=== PATIENT | female | born 1990 | race Caucasian/White ===

== ENCOUNTER 2021-12-28 16:02 | Emergency (ER) | payer OTHER, SELFPAY ==
--- NOTE | 2021-12-28 16:04 | ED.BACK ---
HPI - Back Pain/Injury General Chief Complaint: Back Pain/Injury Stated Complaint: back pain Time Seen by Provider: 12/28/21 16:04 Source: patient Mode of arrival: ambulatory Limitations: no limitations History of Present Illness HPI Narrative: Ms. Ronquillo is a 31-year-old female patient presenting to the clinic today with complaints of back pain of an exacerbation of chronic back pain. She reports she has had back pain off and on for 3 years but over the last 3 days has gradually gotten worse. 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 She reports she has a history of stenosis in her low back. She reports at times she will have numbness and tingling to her right hip and leg Related Data Allergies Allergy/AdvReac Type Severity Reaction Status Date / Time Penicillins Allergy Rash Verified 12/28/21 16:14 Review of Systems Review of Systems: Pertinent positives per HPI. Patient denies any fever, chills, rash, headache, visual changes, dizziness, cough, runny nose, sore throat, shortness of breath, chest pain, palpitations, nausea, vomiting, diarrhea, constipation, abdominal pain, or any urinary issues. PMFSH Comments At the time of my signature, I reviewed and agree with the nursing past medical, surgical, social, and family history. There is no relevant family history pertinent to the patient complaint. Exam Narrative: General: Well-developed, well nourished, in no apparent distress Head: Normocephalic, atraumatic. Cardio: Regular rate and rhythm, s1 and s2 normal, no murmur appreciated. Resp: Clear to auscultation bilaterally, no rhonchi, rales, wheezing or rubs. Musculoskeletal: No deformity, tender to palpation over the paraspinous muscles of the right low back, grossly normal range of motion, bilateral lower muscle strength strong and equal, peripheral pulse strong, patellar reflexes 2+, negative foot drop, no edema, no cyanosis, normal gait and station Course Course Emergency Course: Portions of this record may have been created with voice recognition software. Level of Care: Express Care Visit Vital Signs Vital signs: Vital signs reviewed MDM - Back Pain/Injury MDM Narrative Medical decision making narrative: At the time of visit patient is resting comfortably on the exam table. I suspect the patient has exacerbation of right-sided low back pain. I will send in a prescription for some Flexeril and give her a few days off work. 60 of Toradol was given in the clinic today. UA was negative for any sign of infection or blood. Differential Diagnosis Differential diagnosis: Likely lumbar radiculopathy, sciatica and strain of lumbar region Discharge Plan Discharge Clinical Impression: Low back pain Patient Disposition: Home, Self-Care Condition: Stable Instructions: Antibiotic Form, Low Back Strain (ED), Back Pain (ED), Lower Back Exercises (ED) Additional Instructions: Toradol 60 mg IM given in the clinic for pain May take Flexeril every 8 hours as needed for muscle spasms Urinalysis was negative for any sign of infection or blood May take Tylenol/Motrin as needed for pain May apply Aspercreme, blue emu, or lidocaine to the affected area May apply ice or heat to the affected area Follow-up with your PCP in 3 to 5 days if symptoms persist or sooner if they worsen Prescriptions: New cyclobenzaprine 10 mg tablet 10 mg PO Q8H PRN (Reason: muscle spasm) 7 Days Qty: 21 0RF Follow-up/Referrals: UNKNOWN,DOCTOR [Primary Care Provider] - Stand Alone Forms: Work/School Release IP Time of Disposition: 16:43 Quality NIHSS Nursing Documentation ED NIHSS nursing documentation: reviewed/agree
[2021-12-28 16:15] VITALS: BP 127/74; PULSE 94; RESP 20; TEMP 37.1; O2SAT 99
[2021-12-28] MEDS: KETOROLAC (*BKC) 60 MG/2 ML VIAL IM (16:47)
== END 2021-12-28 17:05 | disposition home or self-care (01) ==
LOC: EXPCOLL 16:06
PROVIDERS: Emergency Provider Nurse Practitioner Family
DX: M54.50 Low back pain, unspecified (principal); Z86.16 Personal history of COVID-19
CPT/HCPCS: 81003; 96372; 99203; G0463; J1885

== ENCOUNTER 2022-03-17 11:13 | Emergency (ER) | payer OTHER, SELFPAY ==
--- NOTE | ~2022-03-17 | XR_ITS ---
XR foot RT min 3V DATE: 03/17/2022 11:41 INDICATION: Dorsal foot pain for 2 to 3 weeks. No known injury. TECHNIQUE: 4 views COMPARISON: None FINDINGS: Mild plantar calcaneal enthesopathy. No associated periosteal reaction or erosive change. There is an old healed fracture of the distal fibular shaft. No recent fracture or dislocation, perio steal reaction or bone destruction is detected. No erosive change. Joint spaces are preserved. IMPRESSION: Mild plantar calcaneal enthesopathy Reviewed, dictated and finalized at location [facility]
[2022-03-17 11:20] VITALS: BP 111/68; PULSE 65; RESP 16; TEMP 36.4; O2SAT 99
--- NOTE | 2022-03-17 11:27 | ED.LOWEXIN ---
HPI - Extremity Injury (Lower) General Chief Complaint: Extremity Injury, Lower Stated Complaint: injury to right food; Time Seen by Provider: 03/17/22 11:38 Source: patient, RN notes reviewed and old records reviewed Mode of arrival: ambulatory Limitations: no limitations History of Present Illness HPI Narrative: 32 year old female presents to the [facility] with complaints of pain to the right foot dorsal aspect As well as plantar aspect of unsure of injury. Onset (ago): week(s) (2) Related Data Home Medications Medication Instructions Recorded Confirmed No Home Medications 03/17/22 03/17/22 Allergies Allergy/AdvReac Type Severity Reaction Status Date / Time Penicillins Allergy Rash Verified 02/10/22 12:57 Review of Systems Review of Systems: All systems reviewed & are unremarkable except as noted in HPI and below Constitutional: Constitutional: Reports no additional constitutional complaints, Denies chills and Denies fever(s) Eyes: Eyes: Reports no additional eye complaints ENT: Reports system reviewed and no additional complaints, except as documented Cardiovascular: Cardiovascular: Reports no additional cardiovascular complaints Respiratory: Respiratory: Reports no additional respiratory complaints Gastrointestinal: Gastrointestinal: Reports no additional gastrointestinal complaints Musculoskeletal: Musculoskeletal: Reports as per HPI, Denies arthralgias and Denies joint swelling Integumentary/Breasts: Skin/Breast: Reports system reviewed and no additional complaints, except as docu Neurologic: Reports system reviewed and no additional complaints, except as documented Psychiatric: Psychiatric: Reports no additional psychiatric complaints Allergic/Immunologic: Allergic/Immunologic: Reports no additional allergic/immunologic complaints PMFSH Past Medical History Medical History Chronic low back pain Depression Family History Family History Other Migraine Skin cancer Thyroid disorder Social History Social History Smoking status: Never smoker Alcohol intake: current Substance use: never Substance use type: does not use 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 There is no relevant family history pertinent to the patient complaint. Exam Const: General: healthy appearing, comfortable, no acute distress, well developed, alert and well nourished Nutritional Appearance: well nourished Orientation/consciousness: patient oriented x3 Limitations: no limitations HENMT: Head: normal to inspection Ears: external ears normal Eyes: General: appearance normal, both eyes and all related structures Pupils: Equal, round and reactive pupils present Neck: Neck: normal visual inspection, full ROM, no lymphadenopathy and no meningeal signs Chest: Chest palpation & inspection: normal inspection of the chest Resp: Effort & Inspection: normal respiratory effort and no use of accessory muscles Auscultation: clear to auscultation bilaterally, no crackles, no rales, no rhonchi and no wheezes Cardio: Rate: regular rate Rhythm: regular rhythm GI: GI Palp: Yes Soft to palpation and No Tenderness to palpation present (GI) Back/Spine/Pelvis: Cervical Spine: cervical ROM normal and No Cervical spine tenderness Thoracic/Lumbar Spine: thoracic and lumbar spine normal to inspection and thoraco-lumbar ROM normal Skin: General skin exam: normal color Rashes: no rashes Wounds: no wounds Neuro: General: patient oriented x3, moves all extremities, no meningeal signs and no focal motor deficits Cranial nerves: Yes Equal, round and reactive pupils present Speech: normal speech Gait exam (Neuro): Normal
== END 2022-03-17 12:25 | disposition home or self-care (01) ==
PROVIDERS: Emergency Provider Nurse Practitioner
DX: M79.671 Pain in right foot (principal)
CPT/HCPCS: 73630; 99213; G0463

== ENCOUNTER 2022-04-17 15:52 | Emergency (ER) | payer OTHER, SELFPAY ==
[2022-04-17 16:26] VITALS: BP 140/87; PULSE 65; RESP 16; TEMP 37; O2SAT 100
--- NOTE | 2022-04-17 17:02 | ED.FEMALEGU ---
HPI - Female Genitourinary General Chief complaint: Urogenital-Female Stated complaint: UTI Source: patient Mode of arrival: ambulatory Limitations: no limitations History of Present Illness HPI Narrative: 32-year-old female presents to [facility] with complaints of right-sided lower back pain, urinary burning, frequency and dark colored urine since this morning. Patient reports that she has a history of kidney stone in the past. Patient has been taking [id number] Tylenol and ibuprofen with minimal relief. Patient denies vaginal discharge, fever, body aches, chills, nausea, vomiting or diarrhea. MD elicited complaint: dysuria Vaginal discharge: none Urinary symptoms: Dysuria, Urgency and Frequency Treatment prior to arrival: acetaminophen and NSAIDs Related Data Allergies Allergy/AdvReac Type Severity Reaction Status Date / Time Penicillins Allergy Rash Verified 02/10/22 12:57 Review of Systems Constitutional: Constitutional: Denies chills and Denies fatigue ENT: Denies dysphagia, Denies dizziness, Denies nasal congestion and Denies sore throat Cardiovascular: Cardiovascular: Denies chest pain and Denies rapid heart rate Respiratory: Respiratory: Denies cough, Denies dyspnea and Denies wheezing Gastrointestinal: Gastrointestinal: Denies abdominal pain, Denies diarrhea, Denies nausea and Denies vomiting Genitourinary: Genitourinary: Reports hematuria, Reports nocturia, Reports dysuria and Reports flank pain Integumentary/Breasts: Skin/Breast: Denies rash Allergic/Immunologic: Allergic/Immunologic: Denies lip swelling, Denies throat swelling and Denies tongue swelling PMFSH Past Medical History Medical History Chronic low back pain Depression Family History Family History Other Migraine Skin cancer Thyroid disorder Social History Social History Smoking status: Never smoker Alcohol intake: current Substance use: never Substance use type: does not use 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 There is no relevant family history pertinent to the presenting complaint. Exam Const: General: healthy appearing, no acute distress and alert Nutritional Appearance: well nourished Orientation/consciousness: patient oriented x3 Limitations: no limitations Eyes: Conjunctivae: conjunctivae normal Neck: Neck: normal visual inspection Resp: Effort & Inspection: normal respiratory effort and not labored Auscultation: clear to auscultation bilaterally, no crackles, no rales, no rhonchi and no wheezes Cardio: Rate: regular rate Rhythm: regular rhythm Heart sounds: no murmurs GI: Inspection: non-distended GI Palp: Yes Soft to palpation, No Tenderness to palpation present (GI), No Guarding due to palpation present (GI) and No Rigid due to palpation : General: Yes bladder normal to palpation Back/Spine/Pelvis: Other: Very mild right CVA tenderness upon palpation Skin: General skin exam: normal color Neuro: Speech: normal speech Psych: Affect: normal affect Attitude: cooperative Course Course Level of Care: Express Care Visit Vital Signs Vital signs: Vital Signs Temperature 37.0 C 04/17/22 16:26 Pulse Rate 65 04/17/22 16:26 Respiratory Rate 16 04/17/22 16:26 Blood Pressure 140/87 04/17/22 16:26 Pulse Oximetry 100 04/17/22 16:26 Oxygen Delivery Room Air 04/17/22 16:26 Temperature 37.0 C 04/17/22 16:26 Pulse Rate 65 04/17/22 16:26 Respiratory Rate 16 04/17/22 16:26 Blood Pressure 140/87 04/17/22 16:26 Pulse Oximetry 100 04/17/22 16:26 Oxygen Delivery Room Air 04/17/22 16:26 MDM - Female Genitourinary MDM Narrative Medical decision making narrative: ur
== END 2022-04-17 17:14 | disposition home or self-care (01) ==
PROVIDERS: Emergency Provider Nurse Practitioner Family
DX: N39.0 Urinary tract infection, site not specified (principal)
CPT/HCPCS: 81003; 87086; 87088; 99213; G0463

== ENCOUNTER 2022-05-21 15:17 | Emergency (ER) | payer OTHER, SELFPAY ==
--- NOTE | ~2022-05-21 | XR_ITS ---
EXAM: XR knee LT min 4V DATE: 05/21/2022 16:25 HISTORY: fell 4 days ago onto knee, twisted 2 days ago . COMPARISON: None available. FINDINGS: Normal mineralization. No fracture or dislocation. No lytic or blastic lesion. Mild left k nee osteoarthritis. No erosion or periosteal change. Small-volume left knee joint effusion. Soft tiss ues within normal limits. IMPRESSION: No acute osseous finding in the left knee. Reviewed, dictated and finalized at location [facility]
[2022-05-21 15:30] VITALS: BP 116/79; PULSE 102; RESP 20; TEMP 36.6; O2SAT 99
--- NOTE | 2022-05-21 15:45 | ED.EXTPRO ---
HPI - Extremity Problem General Chief complaint: Extremity Injury, Lower <Nancie Thomas NP - Last Filed: 05/21/22 17:01> Stated complaint: Left Knee Pain <Nancie Thomas NP - Last Filed: 05/21/22 17:01> Time Seen by Provider: 05/21/22 15:45 <Nancie Thomas NP - Last Filed: 05/21/22 17:01> Source: patient <Nancie Thomas NP - Last Filed: 05/21/22 17:01> Mode of arrival: ambulatory <SANDRA Gray Last Filed: 05/21/22 17:01> Limitations: no limitations <SANDRA Gray Last Filed: 05/21/22 17:01> History of Present Illness HPI Narrative: 32-year-old female presents with complaint of left knee pain. Patient reports that she fell onto left knee approximately 1 week ago. She then states a few days later she twisted her left knee and had pain to medial aspect. has been working and has not been able to see her primary care physician. Taking [id number] pain medications such as ibuprofen and Tylenol to treat her pain. Patient states she feels like a tight band is wrapped around her left knee. She would like an x-ray. Ambulatory with limp. All systems reviewed and negative except as noted above. <Nancie Thomas NP - Last Filed: 05/21/22 17:01> Related Data Home medications: Home Medications Medication Instructions Recorded Confirmed No Home Medications 05/21/22 05/21/22 <Nancie Thomas NP - Last Filed: 05/21/22 17:01> Allergies/Adverse reactions: Allergies Allergy/AdvReac Type Severity Reaction Status Date / Time Penicillins Allergy Rash Verified 05/21/22 15:23 <Nancie Thomas NP - Last Filed: 05/21/22 17:01> Review of Systems Review of Systems: CONSTITUTIONAL: Denies fever, chills, or sweats. EYES: Denies visual changes, redness, or discharge. ENT: Denies rhinorrhea, congestion, sore throat, or otalgia. CARDIOVASCULAR: Denies chest pain, palpitations, or edema. RESPIRATORY: Denies cough or dyspnea. GASTROINTESTINAL: Denies abdominal pain, nausea, vomiting, or diarrhea. GENITOURINARY: Denies dysuria or hematuria. SKIN: Denies rash or itching. MUSCULOSKELETAL: Reports left knee pain. NEUROLOGIC: Denies headache, numbness, or weakness. PSYCHIATRIC: Denies anxiety or depression. All other systems reviewed are negative, except as documented in HPI. 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 There is no relevant family history pertinent to the presenting complaint. <Nancie Thomas NP - Last Filed: 05/21/22 17:01> Exam Narrative: GENERAL: This is a well-nourished, well-developed patient, in no apparent distress. HEAD: normocephalic, atraumatic. EYES: PERRL. Sclera clear/white. Vision is grossly intact. EARS: External ears normal NOSE: External nose normal NECK: Neck supple, non-tender without lymphadenopathy, masses or thyromegaly. CARDIOVASCULAR: Regular rate and rhythm without murmurs, gallops, or rubs. RESPIRATORY: Clear to auscultation. Breath s
== END 2022-05-21 17:05 | disposition home or self-care (01) ==
PROVIDERS: Emergency Provider Nurse Practitioner Family
DX: M25.562 Pain in left knee (principal)
CPT/HCPCS: 73564; 99213; G0463

== ENCOUNTER 2022-08-26 15:11 | Emergency (ER) | payer OTHER, SELFPAY ==
[2022-08-26 15:44] VITALS: BP 100/67; PULSE 64; RESP 18; TEMP 37; O2SAT 100
--- NOTE | 2022-08-26 16:19 | ED.URI ---
HPI - URI/Sore Throat General Chief Complaint: Upper Respiratory Infection Stated Complaint: Sore Throat/Cough Time Seen by Provider: 08/26/22 16:19 Source: patient, RN notes reviewed and old records reviewed Mode of arrival: ambulatory Limitations: no limitations History of Present Illness HPI Narrative: 32-year-old female presents to the [facility] with complaints of a sore throat and cough since Sunday, 3 days. Has not taken anything for symptoms. Has a history of seasonal allergies. MD elicited complaint: cough and sore throat Onset (ago): day(s) (3) Treatments prior to arrival: none Related Data Home Medications Medication Instructions Recorded Confirmed No Home Medications 05/21/22 05/21/22 Allergies Allergy/AdvReac Type Severity Reaction Status Date / Time Penicillins Allergy Rash Verified 08/26/22 15:44 Review of Systems Review of Systems: All systems reviewed & are unremarkable except as noted in HPI and below Constitutional: Constitutional: Reports no additional constitutional complaints Eyes: Eyes: Reports no additional eye complaints ENT: Reports as per HPI and Reports sore throat Cardiovascular: Cardiovascular: Reports no additional cardiovascular complaints, Denies chest pain and Denies dyspnea Respiratory: Respiratory: Reports as per HPI, Denies chest congestion, Reports cough and Denies dyspnea Gastrointestinal: Gastrointestinal: Reports no additional gastrointestinal complaints, Denies abdominal pain, Denies nausea and Denies vomiting Musculoskeletal: Musculoskeletal: Reports no additional musculoskeletal complaints Integumentary/Breasts: Skin/Breast: Reports system reviewed and no additional complaints, except as docu Neurologic: Reports system reviewed and no additional complaints, except as documented Psychiatric: Psychiatric: Reports no additional psychiatric complaints Allergic/Immunologic: Allergic/Immunologic: Reports no additional allergic/immunologic complaints [facility] Past Medical History Medical History Chronic low back pain Depression Family History Family History Other Migraine Skin cancer Thyroid disorder Social History Social History Smoking status: Never smoker Alcohol intake: current Substance use: never Substance use type: does not use Living arrangements: with family Occupation/Education: occupation 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 There is no relevant family history pertinent to the patient complaint. Exam Const: General: cooperative, healthy appearing, comfortable, no acute distress, well developed, alert and well nourished Nutritional Appearance: well nourished and obese Orientation/consciousness: patient oriented x3 Limitations: no limitations HENMT: Head: normal to inspection Ears: hearing grossly normal bilaterally, external ears normal, TM's normal bilaterally and EAC's normal Face/Nose/Sinus: Normal external nose present, Normal nares present, Normal nasal mucous membranes and turbinates present and normal facial exam Face and sinus: normal facial exam, sinuses nontender and face symmetric Mouth: Yes Normal oral and palatal mucosa present, Yes lip normal and Yes moist mucous membranes Throat: posterior oropharynx normal, tonsils normal, uvula midline and postnasal drainage Eyes: General: appearance normal, both eyes and all related structures Alignment and Position: alignment normal Periorbital: periorbital findings normal Conjunctivae: conjunctivae normal Pupils: Equal, round and reactive pupils present EOM: EOMs intact bilaterally Neck: Neck: normal visual inspection, full ROM, no lymphadenopathy and no meningeal signs
== END 2022-08-26 16:33 | disposition home or self-care (01) ==
PROVIDERS: Emergency Provider Nurse Practitioner
DX: J06.9 Acute upper respiratory infection, unspecified (principal); R09.82 Postnasal drip
CPT/HCPCS: 87081; 87880; 99213; G0463